=== PATIENT | female | born 1960 ===

== ENCOUNTER 2024-01-14 06:34 | Day surgery (SDC) | payer OTHER, SELFPAY ==
[2024-01-03 13:48] VITALS: BMI 30.1
[2024-01-14] VITALS (13 sets, daily range): BP systolic 116–140; BP diastolic 64–71; BMI 30.1
[2024-01-14] MEDS: NORMOSOL-R/PLASMALYTE-A 1000 IV (10:03)
[2024-01-14] MEDS: TYLENOL 1000 MG PO (10:03)
[2024-01-14] MEDS: CELEBREX 200 MG PO (10:03)
== END 2024-01-14 13:56 | disposition home or self-care (01) ==
LOC: SDS 06:34
PROVIDERS: ATTENDING PHYSICIAN Specialist; FAMILY PHYSICIAN Family Medicine
DX: S83.232A Complex tear of medial meniscus, current injury, left knee, initial encounter (principal); X58.XXXA Exposure to other specified factors, initial encounter; M94.262 Chondromalacia, left knee
CPT/HCPCS: 29881; 36415; 93005